=== PATIENT | female | born 1955 | race Caucasian/White ===

== ENCOUNTER 2018-10-04 05:31 | Inpatient (IN) | payer BC, OTHER ==
[2018-09-28 13:30] LABS: HEMOGLOBIN 14.1 gm/dL (12.0-15.0); MCH 31.7 pg (26.0-34.0); MCHC 34.5 g/dL (28.0-37.0); MCV 91.8 fL (80.0-100.0); RBC 4.47 mil/uL (4.20-5.00); RDW 13.7 % (10.5-14.5); URINE BILIRUBIN NEGATIVE (Negative); URINE BLOOD NEGATIVE (Negative); URINE CLARITY CLEAR; URINE COLOR YELLOW; URINE GLUCOSE-RANDOM* NEGATIVE (Negative); URINE KETONES TRACE (Negative); URINE NITRITE-REFLEX NEGATIVE (Negative); URINE PROTEIN (DIPSTICK) NEGATIVE (Negative); URINE SPECIFIC GRAVITY 1.025 (1.005-1.035); URINE UROBILINOGEN 0.2 E.U./dl (0.2-1.0); WBC 5.8 thou/uL (4.0-11.0)
[2018-09-28 13:31] LABS: URINE LEUKOCYTES-REFLEX NEGATIVE (Negative)
[2018-09-28 13:52] LABS: ALBUMIN 3.5 g/dL (3.4-5.0); CALCIUM 9.1 mg/dL (8.5-10.1); CREATININE 0.9 mg/dL (0.6-1.0); POTASSIUM 4.6 mmol/L (3.5-5.1)
--- NOTE | 2018-09-28 23:32 | EKG ---
[place] [address] [facility] [place] [address] ELECTROCARDIOGRAM REPORT Name: BILLIE SPENCER Room #: PRE IN [facility]#: [id number] Admission: Attend Phys: Fahad Phillips MD Discharge: Date of : 53 Report #: [id number] THIS REPORT FOR: //name// [facility] Test Date: 2018-09-28 Test Time: 13:28:04 Pat Name: BILLIE SPENCER Department: Room: Gender: F Care Management Specialist: jordana : 1955 Requested By: Fahad Phillips Order Number: [id number] : Tyler Alexandra Measurements Intervals [place] Rate: 60 P: 11 NM: 237 QRS: -27 QRSD: 99 T: 2 QT: 412 QTc: 412 Interpretive Statements Pacemaker spikes or artifacts Sinus rhythm Prolonged NM interval Probable left ventricular hypertrophy Inferior infarct, age indeterminate No previous ECG available for comparison Electronically Signed On 09-28-2018 23:32:24 [employer] 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
[~2018-10-04] VITALS: Ht 170.2 cm; Wt 72.6 kg
[~2018-10-04 05:31] MED LIST: CALCIUM 600 +1 EAC1 PO; COREG25 MG PO; CYMBALTA30 MG PO; ESTRADIOL 1 MG T1 M1 PO; ESTRADIOL 1 MG T1 M1 VAG; FLEXERIL PO; FOSAMAX 70 MG T70 MG PO; LISINOPRIL40 MG PO; NEURONTIN 300300 M1 PO; OMEGA-31000 M1 PO; PERCOCET 10-321 EACH PO; POTASSIUM20 PO; PREDNISONE 5 MG5 M1 PO; PRENATAL PO; PRILOSEC 20 MG20 MG PO; PROBIOTIC1 EAC1 PO; STOOL SOFTENER100 M1 PO; VALIUM5 MG PO; ZANAFLEX2 MG PO
[2018-10-04 07:00] VITALS: BP 151/79
--- NOTE | 2018-10-04 11:28 | O ---
[facility] [place] [address] OPERATIVE REPORT Name: BILLIE SPENCER Room #: 150-3 ADM IN M.R.#: [id number] Admission: 10/04/18 Attend Phys: Fahad Phillips MD Discharge: Date of : 53 Report #: [id number] THIS REPORT FOR: //name// CC: Krzysztof Bruno Fahad Phillips DATE OF SERVICE: 10/04/2018 SERVICE: Orthopedics. FACILITY: [place]. SURGEON: Fahad Phillips MD. NEEDLE LEADER: Pauline Nieto NP. PREOPERATIVE DIAGNOSIS: End-stage osteoarthritis, right knee. POSTOPERATIVE DIAGNOSIS: End-stage osteoarthritis, right knee. PROCEDURES: 1. Right total knee arthroplasty. 2. Computer navigated robotic assistance. COMPLICATIONS: None. DRAINS: None. SPECIMENS: None. ANESTHESIA: General with regional. ESTIMATED BLOOD LOSS: 150 mL. FINDINGS: 1. [employer]hew Journey Oxinium size 5 femur with size 4 tibia and 9 poly insert and 32-mm patellar button. 2. Significant synovitis treated with partial synovectomy. HISTORY: The patient is a 62-year-old female with a history of autoimmune disorder as well as right knee osteoarthritis. She had pursued extensive conservative measures including rest, activity modification, physical therapy, corticosteroid injections, viscosupplementation, oral medicines, even partial meniscectomy for mechanical symptoms, but she continued to have worsening pain and eventually developed ncsg-cn-orne osteoarthritis. She had lifestyle limiting symptoms and wished to have definitive treatment. Risks, benefits, [facility] [address] [place] [address] OPERATIVE REPORT Name: BILLIE SPENCER Room #: 150-3 [facility] IN M.R.#: [id number] Admission: 10/04/18 Attend Phys: Fahad Phillips MD Discharge: Date of : 53 Report #: [id number] alternatives and indication for surgery were discussed with her in detail. Risks include, but are not limited to pain, bleeding, infection, injury to nerves or blood vessels, persistent pain despite surgical intervention, stiffness, need for further surgery, failure of the implant including need for possible revision as well as fracture and complication related to anesthesia such as stroke, heart attack, pulmonary complications, thromboembolic disease and . Despite these risks, she wished to proceed. PROCEDURE IN DETAIL: After right lower extremity was correctly identified in the preoperative holding as the operative extremity, the patient underwent placement of a single shot regional nerve block by anesthesia team. She was then taken to the operating room where general anesthesia was induced without complication. She was padded appropriately. Prophylactic antibiotics were administered at appropriate time. Tourniquet was applied to right leg. Right leg was then prepped and draped in standard sterile fashion. Time-out procedure was performed. An Esmarch was utilized. Tourniquet was inflated to 300 mmHg and this procedure was begun. A standard anterior approach was made to the knee. Full thickness skin flaps were developed and medial parapatellar arthrotomy was developed. Menisci, retropatellar tendon fat pad and cruciate ligaments were then excised. There was severe arthritis, tricompartmental worst on the lateral side. The Gojimo robotic system was then utilized. The tracers were placed in the femur and tibia. Then, the barrel handler pegs were placed in the bone as well and then, a templating was performed of the femur and tibia obtaining rotation and sizing. She had pronounced condyles and a deep trochlea, so we spent some additional time in the templating phase to ensure that we selected the appropriate implant for her and did not over size her from medial to lateral standpoint, but did not under size her from anterior to posterior, ultimately selecting the size 5 Journey Oxinium femoral component, which at the end of the procedure, did fit well with a 9-mm poly. After the femur and tibia were prepared in a typical fashion utilizing the computer Navio robotic assistance, the trials were placed, templated with a 9-mm. The medial and lateral flexion gaps and extension gaps were symmetric and the knee was quite stable. We proceeded with finishing the preparation of the bone. She did have a small cyst in the medial femoral condyle and this was bone grafted prior to cementation of the implants. The patella was prepared with 32-mm patellar button and the osteophytes were removed. The knee was copiously irrigated then and the posterior osteophytes were removed with just the femoral component in place and then, the posterior capsule was injected with 30 mL of the total 120 mL periarticular injection cocktail and then, we cemented the implants into position, placed the knee into extension and allowed the cement to cure. Completed the periarticular injection and then let the tourniquet down and obtained hemostasis while the cement cured. The trial polyethylene insert was [facility] [address] [place] [address] OPERATIVE REPORT Name: BILLIE SPENCER Room #: 150-3 [facility] IN M.R.#: [id number] Admission: 10/04/18 Attend Phys: Fahad Phillips MD Discharge: Date of : 53 Report #: [id number] again utilized. The knee was well balanced in flexion and extension. She did achieve full extension, so we selected a 9 mm as the final poly, removed any residual bone cement, irrigated the knee and then placed the final poly into position. At this point, the knee was well balanced. The patella was reduced. The arthrotomy was then closed with 0 Vicryl suture in emhgey-ls-vuzrf interrupted fashion after a gram of vancomycin powder had been placed deep into the wound and then, the skin was closed with 2-0 Vicryl followed by running subcuticular 3-0 Monocryl and skin glue. Sterile dressing was applied followed by compression stocking. The patient was awakened from anesthesia and taken to recovery room in stable condition. There were no complications and all counts were recorded as correct. <ELECTRONICALLY SIGNED> By: Fahad Phillips MD 10/04/18 1128 [id number] Fahad Phillips MD /nt
[2018-10-04 12:00] VITALS: BP 130/73
[2018-10-04 12:15] VITALS: BP 135/70
--- NOTE | 2018-10-04 12:26 | NUR ---
ASSUMED CARE OF PT AT 12:09. ARRIVED TO ROOM FROM PACU IN STABLE CONDITION. ASSESSMENT COMPLETED. A&O,X4. C/O RIGHT KNEE PAIN, PAIN MEDS GIVEN ORDERED. DENIES NAUSEA AT THIS TIME, NO VOMITING NOTED. RIGHT KNEE DRESSING APPEARS C/D/I. POLAR PACK AND BENJAMIN WRAP IN PLACE. IRASEMA HOSE AND SCD'S IN PLACE BILATERALLY. DENIES SOA OR CHEST PAIN. [address], NO OXYGEN USE AT HOME. VSS. POST OP VITALS IN PROGRESS. SKIN APPEARS INTACT. BUTTERFLY RASH NOTED ON NOSE, HX LUPUS AND CHRONIC PAIN. WILL CONTINUE TO MONITOR.
[2018-10-04 12:30] VITALS: BP 132/73
--- NOTE | 2018-10-04 15:42 | NUR ---
INITIAL ASSESSMENT: Pt evaluated for d/c planning needs. Reviewed chart and spoke with nurse and pt. Pt is alert and oriented. Pt had surgery today. Pt lives in house with spouse and was independent with ADL's prior to admission to the hospital. Pt has walker at home and has not had home health in the past. Pt plans on going to [facility] for outpatient therapy, unless the weather is bad and then she wants home health. Will remain available to assist as needed.
[2018-10-04 16:35] VITALS: BP 129/74
[2018-10-04 19:50] VITALS: BP 141/77
--- NOTE | 2018-10-04 20:18 | NUR ---
END OF SHIFT. VSS. PT ON ROOM AIR, GOOD O2 SATS NOTED. C/O RIGHT KNEE PAIN, MEDS GIVEN ORDERED. STEFANY DRESSING C/D/I. PT ABLE TO AMBULATE WITH WALKER AND X1 ASSIST. DENIES N/V. NO OTHER CHANGE IN PT CONDITION.
--- NOTE | 2018-10-04 20:26 | NUR ---
POLAR ICE LEAKING BY THE CONNECTOR CLOSE TO THE PATIENT, WILL USE ICE PACK UNTIL CS SENDS A NEW ONE, RESTING GOOD, ABLE TO LIFT RIGHT LEG UP WHEN PROMPTED.
[2018-10-05 03:20] VITALS: BP 100/56
[2018-10-05 04:00] VITALS: BP 100/56
--- NOTE | 2018-10-05 05:01 | NUR ---
PT WELL CONTROLLED, OTHERWISE ON OXYCODONE AND MS CONTIN, PT ABLE TO LIFT RIGHT LEG WHEN PROMPTED, AMBULATES GOOD WITH MINIMAL ASSIST, DRESSING TO RIGHT KNEE CDI, POLAR ICE CHANGED AND CURRENLTY IS FUNCTIONAL. ON ROOM AIR, IV CONVERTED TO SALINE LOCK, SCDS TO LEFT AND RIGHT LEG, IRASEMA HOSE TO LEFT LEG, STEFANY DRESSING PATENT. HOURLY ROUNDING DONE, CALL LIGHT WITHIN REACHED, NO NAUSEA NOTED, MONITORED.
[2018-10-05 06:15] LABS: HEMATOCRIT 32.3 % (37.0-47.0); HEMOGLOBIN 11.1 gm/dL (12.0-15.0); MCH 31.5 pg (26.0-34.0); MCHC 34.3 g/dL (28.0-37.0); MCV 91.7 fL (80.0-100.0); RBC 3.52 mil/uL (4.20-5.00); RDW 13.7 % (10.5-14.5); WBC 11.1 thou/uL (4.0-11.0)
[2018-10-05 06:23] LABS: CALCIUM 8.5 mg/dL (8.5-10.1); POTASSIUM 4.8 mmol/L (3.5-5.1)
[2018-10-05 08:06] VITALS: BP 101/67
[2018-10-05 18:10] VITALS: BP 127/66
[2018-10-05 22:00] VITALS: BP 127/66
--- NOTE | 2018-10-06 01:19 | NUR ---
Pt A/OX4,up with AX1/RW,reports was doing better earlier but now hurts more with ambulation LOP 8/10. Medicated with pain meds per EMAR with partial relief reported.Polar ice filled with fresh ice and reapplied. STEFANY dsg in place on Right knee with dried blood noted,pressure applied with astrid wrap. VSS. Voiding without any difficulties. Encouraged to call for help as needed. Resting quietly at this time eyes closed. Call light/personal items within reach. Will continue to monitor.
[2018-10-06 06:52] LABS: HEMATOCRIT 23.1 % (37.0-47.0); MCH 32.5 pg (26.0-34.0); MCHC 35.3 g/dL (28.0-37.0); MCV 92.1 fL (80.0-100.0); RBC 2.51 mil/uL (4.20-5.00); WBC 5.5 thou/uL (4.0-11.0)
[2018-10-06 07:00] LABS: HEMOGLOBIN 8.1 gm/dL (12.0-15.0)
--- NOTE | 2018-10-06 12:26 | NUR ---
SW reviewed chart and spoke with nursing and attending physician. Pt was [facility] from and is progressing towards goals for discharge. Plan is for pt to d/c home when medically stable. Pt will be doing outpatient therapy in [place], [place]. No SW discharge needs identified at this time, but is available to assist should needs arise.
[2018-10-06 19:08] VITALS: BP 149/84
--- NOTE | 2018-10-06 19:49 | NUR ---
ASSUMED CARE OF PATIENT AT 0715, PATIENT ALERT AND ORIENTED X 4. UP WITH ASSIST X 1 WITH WALKER. STEFANY DRESSING CHANGED THIS AM BY LEESA HUNTLEY/YEISON. PATIENT C/O PAIN WITH RIGHT KNEE, PATIENT RECEIVED OXYCODONE X 3 THIS SHIFT, AND MORPHINE 2MG X 2, DISCONTINUED AT 1824. LEESA HUNTLEY/YEISON CALLED AT 1820 TO DISCHARGE PATIENT TO HOME, THIS RN NOTIFIED LEESA HUNTLEY/YEISON THAT PATIENT IS STILL HAVING LOTS OF PAIN NOT READY FOR DISCHARGE, THIS RN CANCELLED DISCHARGE ORDER. PATIENT HAS RIGHT FOREARM IV IN PLACE AND REMAINS PATENT. PATIENT WORKED WITH PHYSICAL THERAPY X 2 TODAY. WILL CONTINUE TO MONITOR.
--- NOTE | 2018-10-07 03:44 | NUR ---
PATIENT ALERT AND ORIENTED X4. UP WITH ONE ASSIST TO BATHROOM WITH WALKER. C/O PAIN TO RIGHT KNEE AND MEDICATED X1 AT TIME OF NOTE WITH PRN OXYCODONE. PATIENT STATES THAT THE OXYCODONE WORKS BETTER FOR HER THAN THE MORPHINE CR 30MG WHICH IS SCHEDULED. POSSIBLE D/C DEPENDING UPON PAIN LEVEL. WILL MONITOR.
[2018-10-07 07:54] LABS: HEMATOCRIT 23.9 % (37.0-47.0); HEMOGLOBIN 8.4 gm/dL (12.0-15.0); MCH 32.4 pg (26.0-34.0); MCHC 35.2 g/dL (28.0-37.0); MCV 92.1 fL (80.0-100.0); RBC 2.6 mil/uL (4.20-5.00); WBC 9.7 thou/uL (4.0-11.0)
[2018-10-07 08:00] VITALS: BP 91/43
[2018-10-07 08:05] VITALS: BP 91/43
[2018-10-07 10:25] VITALS: BP 90/53
--- NOTE | 2018-10-07 11:02 | NUR ---
PATIENT CARE WAS ASSUMED AT 0730.PATIENT IS ALERT AND ORIENTED X4.PATIENT IS ABLE TO AMBULATE WITH STAND BY ASSIST X1 WITH WALKER.PATIENT HAS HAD PAIN THIS MORNING IN RIGHT KNEE,WILL GIVE PAIN MEDS WITH MORNING MEDICATIONS.PATIENT WAW TAKEN TO BATHROOM AND PLACED IN CHAIR FOR BREAKFAST.STEFANY DRESSING IS C/D/I.PATIENT HAS TEDS IN PLACE.SCDS ARE NOT ON ONLY WHILE IN BED.B/P IS LOW.WILL CONTINUE TO MONITOR.PT/OT WILL WORK WITH PATIENT IN THE AM.CALL LIGHT, PHONE, AND PERSONAL BELONGINGS ARE WITHIN REACH.WILL CONTINUE TO MONITOR THE PATIENT.
[2018-10-07 17:35] VITALS: BP 103/68
[2018-10-07 19:23] VITALS: BP 122/68
--- NOTE | 2018-10-07 23:26 | NUR ---
PATIENT ALERT AND ORIENTED WITH FORGETFULNESS ABOUT HOW TO USE HER WALKER. VERY SLOW AND FOLLOWING INSTRUCTIONS OFF AND ON. REORIENTED TO PLACE WITH CLARITY. BED ALARM ON FOR PRECAUTION. COOLING SYSTEM CHANGED AND PLACED ON RIGHT KNEE FOR COMFORT. PATIENT REFUSED SCHEDULED MORPHINE CR 30MG, STATES THAT IT DOES NOT HELP LIKE THE PRN OXYCODONE. WILL MONITOR.
--- NOTE | 2018-10-08 03:38 | NUR ---
PATIENT IS CONFUSED THIS EVENING WITH WHERE SHE IS. THIS NURSE IS ABLE TO REORIENT HER AT TIMES. UP TO THE BATHROOM WITH ONE ASSIST WITH WALKER WHICH PATIENT NEEDS INSTRUCTIONS WITH. UP MOST OF THE NIGHT. NO C/O PAIN. WILL MONITOR.
[2018-10-08 10:22] LABS: HEMOGLOBIN 7.8 gm/dL (12.0-15.0)
[2018-10-08 13:16] VITALS: BP 114/63
--- NOTE | 2018-10-08 14:53 | NUR ---
ASSUMED CARE THIS AM, SHIFT ASSESMENT DONE, VSS. REPORTED PAIN, PRN PAIN MEDS GIVEN. WORKED WITH PHYSICAL THERAPHY THIS AM. DISCHARGE ORDERS RECEIVED. PATIENT AND WAS GIVEN SCRIPTS AND PAPERWORK. HAD QUESTION ABOUT OUTPATIENT PHYSICAL THERAPHY. AIRCRAFT BODY REPAIRER WAS INFORMED AND CHAIR INSTALLER MAINTENANCE DATA ANALYST WAS INVOLVED. MAINTENANCE DATA ANALYST ERIN INDICATED THAT IF [facility] HAS TO SET UP OUTPATIENT, THEN SHE HAS TO GO THROUGH A HOSPITAL. IF THEY WANT INPATIENT THEN THEY CAN GET IN TOUCH WITH THE MAINTENANCE DATA ANALYST OFFICE ON TUESDAY. SOCIAL WORK OFFICE NUMBER GIVEN. PERIPHERAL IV WAS TAKEN OUT. PATIENT WAS TRANSPORTED OUT WITH NURSING STAFF.
--- NOTE | 2018-10-08 16:15 | NUR ---
RECEIVED CALL FROM [facility] INDICATING THAT PATIENT HAD A RECENT PRESCRIPTION OF PERCOCET FILLED ON THE September AND PHARMACY WANTED TO CHECK WITH PHYSICIAN ABOUT REFILLING THE NEW SCRIPT OF PERCOCET. DR BOOGIE WAS JAMESD, LEESA CALLED BACK AND INDICATED ITS ALRIGHT TO FILL THE PRESCRIPTION PATIENT IS POST OP. [facility] NOTIFED.
== END 2018-10-08 14:58 | disposition home or self-care (01) | DRG 470 ==
LOC: TBA 05:31 → PRE 05:50 → 4E 12:18 → PRE 14:30 → ENTRNSPT 10-05 16:47 → SICU 10-05 17:19 → EDTRNSPTSTS 10-06 09:22 → SICU 10-08 14:58
PROVIDERS: Hospitalist; ADMIT Orthopaedic Surgery Sports Medicine
PROC: 0SRC069 Replacement of Right Knee Joint with Oxidized Zirconium on Polyethylene Synthetic Substitute, Cemented, Open Approach (ICD-10-PCS; principal; 2018-10-04)
PROC: 8E0Y0CZ Robotic Assisted Procedure of Lower Extremity, Open Approach (ICD-10-PCS; principal; 2018-10-04)
DX: M17.11 Unilateral primary osteoarthritis, right knee (principal); I42.9 Cardiomyopathy, unspecified; K21.9 Gastro-esophageal reflux disease without esophagitis; D64.9 Anemia, unspecified; I10 Essential (primary) hypertension; E78.5 Hyperlipidemia, unspecified; M23.341 Other meniscus derangements, anterior horn of lateral meniscus, right knee; M23.321 Other meniscus derangements, posterior horn of medial meniscus, right knee; M22.41 Chondromalacia patellae, right knee; M32.9 Systemic lupus erythematosus, unspecified; F32.9 Major depressive disorder, single episode, unspecified; Z90.710 Acquired absence of both cervix and uterus; Z90.49 Acquired absence of other specified parts of digestive tract; Z79.899 Other long term (current) drug therapy
CPT/HCPCS: 10183; 10783; 15002; 50010; 50101; 50415; 50954; 51130; 51225; 51320; 52001; 52282; 53000; 53078; 54118; 55372; 56527; 56528; 57095; 57103; 57109; 57110; 57113; 57127; 62110; 62900; 70005